=== PATIENT | female | born 1945 ===

== ENCOUNTER 2016-10-25 17:51 | Emergency (ER) | payer MEDICARE, OTHER ==
[2016-10-25 17:52] VITALS: BMI 12.8
[2016-10-25 18:07] VITALS: TEMP 97.9
[2016-10-25] MEDS ORDERED: Morphine 4 mg/ml ISec IVP STA ×2 (19:27→21:37)
[2016-10-25] MEDS ORDERED: DiphenhydrAMINE 50 mg/ml Inj IVP ONE (19:27)
[2016-10-25] MEDS ORDERED: Sodium Chloride 0.9% 1,000 ML IV STA (19:27)
--- NOTE | 2016-10-25 19:42 | ED PDOC ---
Arrival/HPI - General Chief Complaint: Abdominal Pain Time Seen by Provider: 10/25/16 19:19 Historian: Patient - History of Present Illness Narrative History of Present Illness (Text): 10/25/16 19:19 A 71 year old female, whose past medical history includes short bowel syndrome, Colon cancer, intestinal obstruction and cholecystectomy, who presents to the emergency department complaining of diffuse abdominal discomfort for the past couple of days. Patient notes associated nausea and non bloody watery diarrhea. She denies any fever, chills, vomiting, chest pain, shortness of breath or other complaints at this time. Time/Duration: 24 hours Symptom Onset: Sudden Symptom Course: Unchanged Quality: Other Activities at Onset: Rest Modifying Factors (Text): none Context: Home Associated Symptoms (Text): nausea and diarrhea Past Medical History - Provider Review Nursing Documentation Reviewed: Yes - Cardiac Hx Hypertension: Yes - Pulmonary Hx Respiratory Disorders: No - Neurological Hx Neurological Disorder: No - HEENT Hx HEENT Disorder: No - Renal Hx Renal Disorder: No - Endocrine/Metabolic Other/Comment: THYROIDECTOMY - Hematological/Oncological Hx Cancer: Yes - Musculoskeletal/Rheumatological Hx Arthritis: Yes - Genitourinary/Gynecological Hx Genitourinary Disorders: No - Psychiatric Hx Anxiety: Yes Hx Depression: Yes Hx Substance Use: No - Surgical History Hx Cholecystectomy: Yes Hx Hysterectomy: Yes Hx Orthopedic Surgery: Yes Other/Comment: R KNEE REPLACED, PORT R UPPER CHEST - Anesthesia Hx Anesthesia: Yes Family/Social History - Physician Review Nursing Documentation Reviewed: Yes Family/Social History: Unknown Family HX Smoking Status: Never Smoked Hx Alcohol Use: No Hx Substance Use: No Allergies/Home Meds Allergies/Adverse Reactions: Allergies acetaminophen [From Percocet] Adverse Reaction (Mild, Verified 10/25/16 17:53) ITCHING Pt states when needed she takes medication with benadryl morphine Adverse Reaction (Mild, Verified 10/25/16 17:53) ITCHING Pt states when needed she takes medication with benadryl oxycodone HCl [From Percocet] Adverse Reaction (Mild, Verified 10/25/16 17:53) ITCHING Pt states when needed she takes medication with benadryl Home Medications: Home Meds Medication Instructions Recorded Confirmed Cyanocobalamin (Vitamin B-12) 1,000 mcg IJ Q30D 08/17/16 10/25/16 [B-12 Compliance] Hydrocodone/Acetaminophen 1 tab PO Q4 PRN 08/17/16 10/25/16 [Hydrocodone-Acetaminophen 325 mg-7 mg] Temazepam [Restoril] 30 mg PO DAILY 08/17/16 08/17/16 amLODIPine [Norvasc] 10 mg PO DAILY 08/17/16 08/17/16 traZODone [trazodone Hydrochloride] 100 mg PO DAILY 08/17/16 08/17/16 Levothyroxine Sodium [Levoxyl] 150 mcg PO DAILY 10/25/16 10/25/16 Review of Systems - Physician Review All systems were reviewed & negative as marked: Yes - Review of Systems Constitutional: absent: Fevers, Other (chills) Respiratory: absent: SOB Cardiovascular: absent: Chest Pain Gastrointestinal: Abdominal Pain, Diarrhea, Nausea. absent: Vomiting Physical Exam Vital Signs Reviewed: Yes Vital Signs Temp Pulse Resp BP Pulse Ox 10/25/16 17:57 97.9 F 85 17 127/74 99 Temperature: Afebrile Blood Pressure: Normal Pulse: Regular Respiratory Rate: Normal Appearance: Positive for: Well-Appearing, Non-Toxic, Comfortable Pain Distress: None Mental Status: Positive for: Alert and Oriented X 3 - Systems Exam Head: Present: Atraumatic, Normocephalic Pupils: Present: PERRL Extroacular Muscles: Present: EOMI Conjunctiva: Present: Normal Mouth: Present: Moist Mucous Membranes Neck: Present: Normal Range of Motion Respiratory/Chest: Present: Clear to Auscultation, Good Air Exchange. No: Respiratory Distress, Accessory Muscle Use Cardiovascular: Present: Regular Rate and Rhythm, Normal S1, S2. No: Murmurs Abdomen: Present: Tenderness (mild diffuse tenderness with palpation), Normal Bowel Sounds. No: Distention, Peritoneal Signs, Rebound, Guarding Back: Present: Normal Inspection Upper Extremity: Present: Normal Inspection. No: Cyanosis, Edema Lower Extremity: Present: Normal Inspection. No: Edema Neurological: Present: GCS=15, CN II-XII Intact, Speech Normal Skin: Present: Warm, Dry, Normal Color. No: Rashes Psychiatric: Present: Alert, Oriented x 3, Normal Insight, Normal Concentration Medical Decision Making ED Course and Treatment: 10/25/16 19:19 Impression: A 71 year old female with abdominal pain associated with nausea and diarrhea. Differential Diagnosis include but are not limited to: IBS vs. obstruction vs. gastritis Plan: -- Abdomen/Pelvis CT -- Chest X-ray -- EKG -- Labs -- Urinalysis -- Benadryl, Morphine, Pepcid, Zofran and IV Fluids -- Reassess and disposition Prior Visits: Notes and results from previous visits were reviewed. The patient last presented the emergency department on 08/17/16 for evaluation of diffuse abdominal pain. Progress Notes: Reviewed EKG, NSR at 74 bpm. Prolonged QT. Non-specific ST/T wave changes. 10/25/16 21:04 Reviewed Chest X-ray, shows no active disease. 10/25/16 21:33 CT Abdomen and Pelvis shows: 1. Limited study without intravenous or enteric contrast. 2. Evidence of multiple surgeries in the abdomen including bowel resections and partial gastrectomy. Proximal colon and multiple small bowel loops are moderately distended with fluid, most conspicuous along anastomotic suture lines and likely within expected postoperative limits. Although ileus is not excluded, a high-grade mechanical obstruction is felt to be unlikely. 10/25/16 22:07 Discussed results and hospital observation plan with pt. Pt states she does not wish to stay. Pt is choosing to leave against medical advice. Explained to the pt that choosing to do so may result in permanent bodily harm or . Discussed at great length that without further evaluation and monitoring there may be unforeseen circumstances and/or deterioration causing permanent bodily harm or as a result of their choice. Pt is alert, oriented, and shows the mental capacity to make clear decisions regarding the pts health care at this time. Pt continues to wish to leave against medical advice. Pt has been advised that they should return to the emergency room immediately if they change their mind at any time, or if their condition begins to change or worsen in any way. - Lab Interpretations Lab Results: 10/25/16 19:58 10/25/16 19:58 Lab Results 10/25/16 19:58: pO2 89 H, VBG pH 7.46 H, VBG pCO2 58.0, VBG HCO3 41.3 H, VBG Total CO2 43.1 H, VBG O2 Sat (Calc) 98.2 H, VBG Base Excess 14.7 H, VBG Potassium 2.9 L, Sodium 140.0, Chloride 106.0, Glucose 93, Lactate 1.1, FiO2 21.0, Venous Blood Potassium 2.9 L 10/25/16 19:58: WBC 9.5, RBC 3.09 L, Hgb 10.0 L, Hct 29.9 L, MCV 96.8, MCH 32.4 , MCHC 33.4, RDW 12.7, Plt Count 227, MPV 8.8 10/25/16 19:58: Sodium 138, Chloride 94 L, Potassium 2.8 L*, Carbon Dioxide 34 H , Anion Gap 13, BUN 25 H, Creatinine 0.6, Est GFR ( Amer) > 60, Est GFR ( Non-Af Amer) > 60, Random Glucose 91, Calcium 8.9, Total Bilirubin 0.8, AST 34, ALT 43, Alkaline Phosphatase 74, Total Protein 6.7, Albumin 3.7, Globulin 3.0, Albumin/Globulin Ratio 1.2, Lipase 67 10/25/16 19:58: PT 14.2 H, INR 1.31 H, APTT 28.1 I have reviewed the lab results: Yes - RAD Interpretation Narrative RAD Interpretations (Text): CT Abdomen and Pelvis shows: Artifacts: The examination is limited by metallic streak artifact. Limitations: Limited study without intravenous or enteric contrast. Lower thorax: No acute findings. ABDOMEN: Liver: The liver is unremarkable. Gallbladder and bile ducts: There has been a cholecystectomy. No biliary ductal dilatation. Pancreas: The pancreas is unremarkable. Spleen: The spleen is unremarkable. Adrenals: The adrenal glands are unremarkable. Kidneys and ureters: There is a simple cyst in the left kidney. No hydronephrosis or nephrolithiasis Stomach and bowel: Evidence of multiple surgeries in the abdomen including bowel resections and partial gastrectomy. Proximal colon and multiple small bowel loops are moderately distended with fluid, most conspicuous along anastomotic suture lines and likely within expected postoperative limits. Although ileus is not excluded, a high-grade mechanical obstruction is felt to be unlikely. Appendix: The appendix is not seen. PELVIS: Bladder: No focal wall thickening of the urinary bladder. No stones. Reproductive: Unremarkable as visualized. ABDOMEN and PELVIS: Intraperitoneal space: Unremarkable. No free air. No significant fluid collection. Bones/joints: L1-L5 posterior fusion hardware. Soft tissues: No soft tissue swelling. Vasculature: Significantly limited assessment of the vasculature without contrast. Atherosclerotic calcification affects the aorta and iliac arteries. No aortic aneurysm. Lymph nodes: No enlarged lymph nodes. IMPRESSION: 1. Limited study without intravenous or enteric contrast. 2. Evidence of multiple surgeries in the abdomen including bowel resections and partial gastrectomy. Proximal colon and multiple small bowel loops are moderately distended with fluid, most conspicuous along anastomotic suture lines and likely within expected postoperative limits. Although ileus is not excluded, a high-grade mechanical obstruction is felt to be unlikely. Radiology Orders: 10/25/16 19:26 CHEST PORTABLE [RAD] Stat 10/25/16 19:29 ABD & PELVIS W/O PO OR IV CONT [CT] Stat Critical Care Rn: Radiologist - Medication Orders Current Medication Orders: Potassium Chloride (Potassium Chloride 20 Meq/100 Ml) 20 meq in 100 mls @ 50 mls/hr IV ONCE ONE Stop: 10/25/16 23:17 Discontinued Medications Diphenhydramine HCl (Benadryl) 25 mg IVP ONCE ONE Stop: 10/25/16 19:28 Last Admin: 10/25/16 20:09 Dose: 25 mg Famotidine (Pepcid) 20 mg IVP STAT STA Stop: 10/25/16 19:28 Last Admin: 10/25/16 20:08 Dose: 20 mg Sodium Chloride (Sodium Chloride 0.9%) 1,000 mls @ 999 mls/hr IV .Q1H1M STA Stop: 10/25/16 20:27 Last Admin: 10/25/16 20:09 Dose: 999 mls/hr Morphine Sulfate (Morphine) 4 mg IVP STAT STA Stop: 10/25/16 19:28 Last Admin: 10/25/16 20:09 Dose: 4 mg Morphine Sulfate (Morphine) 4 mg IVP STAT STA Stop: 10/25/16 21:38 Ondansetron HCl (Zofran Inj) 4 mg IVP ONCE ONE Stop: 10/25/16 19:28 Last Admin: 10/25/16 20:09 Dose: 4 mg Ondansetron HCl (Zofran Inj) 4 mg IVP ONCE ONE Stop: 10/25/16 21:36 Potassium Chloride (K-Dur 20 Meq Er Tab) 20 meq PO STAT STA Stop: 10/25/16 21:51 - Scribe Statement The provider has reviewed the documentation as recorded by the Airamibaaron Srinivasan Provider Scribe Attestation: All medical record entries made by the Airamibe were at my direction and personally dictated by me. I have reviewed the chart and agree that the record accurately reflects my personal performance of the history, physical exam, medical decision making, and the department course for this patient. I have also personally directed, reviewed, and agree with the discharge instructions and disposition. Disposition/Present on Arrival - Present on Arrival Any Indicators Present on Arrival: No History of DVT/PE: No History of Uncontrolled Diabetes: No Urinary Catheter: No History of Decub. Ulcer: No History Surgical Site Infection Following: None - Disposition Have Diagnosis and Disposition been Completed?: Yes Diagnosis: Abdominal pain, Ileus, Hypokalemia Disposition: AGAINST MEDICAL ADVICE Disposition Time: 22:25 Patient Problems: Current Active Problems Problem Status Onset Abdominal pain Acute Hypokalemia Acute Ileus Acute Condition: STABLE
[2016-10-25 20:07] LABS: HEMATOCRIT 29.9 % (36.0-48.0); MEAN CELL VOLUME 96.8 fL (80.0-105.0); MEAN CORPUSCULAR HEMOGLOBIN 32.4 pg (25.0-35.0); MEAN CORPUSCULAR HGB CONC 33.4 g/dl (31.0-37.0); MEAN PLATELET VOLUME 8.8 fl (7.0-11.0); RED CELL DISTRIBUTION WIDTH 12.7 % (11.5-14.5); WHITE BLOOD COUNT 9.5 10^3/ul (4.5-11.0)
[2016-10-25 20:15] LABS: INR 1.31 (0.93-1.08); PARTIAL THROMBOPLASTIN TIME 28.1 Seconds (23.7-30.8)
[2016-10-25 20:18] LABS: VENOUS BLOOD GAS BASE EXCESS 14.7 mmol/L (0.0-2.0); VENOUS BLOOD PH 7.46 (7.32-7.43)
[2016-10-25 20:30] LABS: ALB/GLOB RATIO 1.2 (1.1-1.8); ALKALINE PHOSPHATASE 74 U/L (38-133); ALT/SGPT 43 U/L (7-56); AST/SGOT 34 U/L (15-39); BILIRUBIN,TOTAL 0.8 mg/dL (0.2-1.3); BLOOD UREA NITROGEN 25 mg/dL (7-21); CALCIUM 8.9 mg/dL (8.4-10.5); CARBON DIOXIDE 34 mmol/L (21-33); CHLORIDE 94 mmol/L (98-107); GFR AFRICAN-AMERICAN > 60; GLUCOSE,RANDOM 91 mg/dL (70-110); LIPASE 67 U/L (23-300); SODIUM 138 mmol/L (132-148); TOTAL PROTEIN 6.7 g/dL (5.8-8.3)
[2016-10-25 20:34] LABS: POTASSIUM 2.8 mmol/L (3.6-5.0)
[2016-10-25] MEDS ORDERED: Morphine 2 mg/ml ISec IVP STA (21:33)
[2016-10-25] MEDS ORDERED: Potassium Chloride 20 mEq ER Tab PO STA (21:50)
[2016-10-25 23:19] VITALS: RESP 18
[2016-10-26 00:44] VITALS: BP 136/75; PULSE 69; O2SAT 99
--- NOTE | 2016-10-26 08:12 | RAD ---
HISTORY: fever COMPARISON: No prior. FINDINGS: LUNGS: No active pulmonary disease. PLEURA: No significant pleural effusion identified, no pneumothorax apparent. CARDIOVASCULAR: Normal. OSSEOUS STRUCTURES: No significant abnormalities. VISUALIZED UPPER ABDOMEN: Normal. OTHER FINDINGS: Right-sided Port-A-Cath in SVC IMPRESSION: No active disease.
--- NOTE | 2016-10-26 12:18 | CARD ---
APPROVED REPORT EKG Measurement Heart [id number] <Conclusion> Normal sinus rhythm Prolonged QT Abnormal ECG
--- NOTE | 2016-10-26 16:08 | CT ---
PROCEDURE: CT Abdomen and Pelvis without intravenous contrast HISTORY: abdominal pain COMPARISON: None. TECHNIQUE: Without contrast. Contrast Dose: Radiation dose: Total exam DLP = 183 mGy-cm. This CT exam was performed using one or more of the following dose reduction techniques: Automated exposure control, adjustment of the mA and/or kV according to patient size, and/or use of iterative reconstruction technique. The study is limited by lack of abdominal fat and lack of oral or IV contrast. Separation of bowel loops is difficult. It is difficult to detect inflammatory changes FINDINGS: LOWER THORAX: Unremarkable. LIVER: Unremarkable. No gross lesion or ductal dilatation. GALLBLADDER AND BILE DUCTS: Unremarkable. PANCREAS: Unremarkable. No gross lesion or ductal dilatation. SPLEEN: Unremarkable. ADRENALS: Unremarkable. No mass. KIDNEYS AND URETERS: Unremarkable. No hydronephrosis. No solid mass. VASCULATURE: Unremarkable. No aortic aneurysm. BOWEL: Multiple dilated loops of large bowel are seen with air-fluid levels. Findings could be related to partial obstruction or ileus. Multiple suture lines are seen. There is no evidence of free air. APPENDIX: Not visualized PERITONEUM: Unremarkable. No free fluid. No free air. LYMPH NODES: Unremarkable. No enlarged lymph nodes. BLADDER: Unremarkable. REPRODUCTIVE: Unremarkable. BONES: Multiple pedicle screws are seen OTHER FINDINGS: The report concurs with the preliminary [facility] report IMPRESSION: Multiple dilated loops of large bowel with air-fluid levels. See comments
== END 2016-10-26 00:44 | disposition left against medical advice (07) ==
LOC: ED 17:51
DX: K56.7 Ileus, unspecified (principal); E87.6 Hypokalemia; R10.9 Unspecified abdominal pain
CPT/HCPCS: 71010; 74176; 80053; 82803; 83690; 85027; 85610; 85730; 93005; 96374; 96375; 96376; 99283; J1200; J2270; J2405; J3480; J7040

== ENCOUNTER 2016-10-27 17:30 | Emergency (ER) | payer MEDICARE, OTHER ==
[2016-10-27 17:48] VITALS: BMI 13.3
[2016-10-27 17:49] VITALS: RESP 16; TEMP 97.5
[2016-10-27] MEDS ORDERED: Morphine 2 mg/ml ISec IVP STA ×2 (18:18→20:55)
[2016-10-27] MEDS ORDERED: DiphenhydrAMINE 50 mg/ml Inj IVP STA ×2 (18:18→20:55)
[2016-10-27] MEDS ORDERED: Sodium Chloride 0.9% 1,000 ML IV STA (18:18)
--- NOTE | 2016-10-27 18:25 | ED PDOC ---
Arrival/HPI - General Chief Complaint: Dizziness/Lightheaded Time Seen by Provider: 10/27/16 17:53 Historian: Patient - History of Present Illness Narrative History of Present Illness (Text): 10/27/16 18:17 Patient is a 71 year old female whose past medical history includes short bowel syndrome, Colon cancer, intestinal obstruction and cholecystectomy, who presents to the emergency department with worsening abdominal pain since last visit in the ER 2 days ago. Patient had non-contrast CT which showed possible ileus and she signed out AMA. Patient also reports nausea and constipation since leaving two days ago. Denies vomiting dysuria, or other complaints. PMD: None Time/Duration: < week Symptom Onset: Gradual Symptom Course: Worsening Modifying Factors (Text): None Associated Symptoms (Text): None Past Medical History - Provider Review Nursing Documentation Reviewed: Yes - Cardiac Hx Cardiac Disorders: Yes Hx Hypertension: Yes - Pulmonary Hx Respiratory Disorders: No - Neurological Hx Neurological Disorder: No - HEENT Hx HEENT Disorder: No - Renal Hx Renal Disorder: No - Endocrine/Metabolic Hx Endocrine Disorders: Yes Other/Comment: THYROIDECTOMY - Hematological/Oncological Hx Blood Disorders: Yes Hx Cancer: Yes (colon) - Integumentary Hx Dermatological Disorder: No - Musculoskeletal/Rheumatological Hx Musculoskeletal Disorders: Yes Hx Arthritis: Yes - Gastrointestinal Hx Gastrointestinal Disorders: Yes - Genitourinary/Gynecological Hx Genitourinary Disorders: No - Psychiatric Hx Psychophysiologic Disorder: Yes Hx Anxiety: Yes Hx Depression: Yes Hx Substance Use: No - Surgical History Hx Cholecystectomy: Yes Hx Hysterectomy: Yes Hx Orthopedic Surgery: Yes Other/Comment: R KNEE REPLACED, PORT R UPPER CHEST - Anesthesia Hx Anesthesia: Yes Family/Social History - Physician Review Nursing Documentation Reviewed: Yes Family/Social History: Unknown Family HX Smoking Status: Never Smoked Hx Alcohol Use: No Hx Substance Use: No Allergies/Home Meds Allergies/Adverse Reactions: Allergies acetaminophen [From Percocet] Adverse Reaction (Mild, Verified 10/27/16 17:48) ITCHING Pt states when needed she takes medication with benadryl morphine Adverse Reaction (Mild, Verified 10/27/16 17:48) ITCHING Pt states when needed she takes medication with benadryl oxycodone HCl [From Percocet] Adverse Reaction (Mild, Verified 10/27/16 17:48) ITCHING Pt states when needed she takes medication with benadryl Home Medications: Home Meds Medication Instructions Recorded Confirmed Cyanocobalamin (Vitamin B-12) 1,000 mcg IJ Q30D 08/17/16 10/27/16 [B-12 Compliance] Temazepam [Restoril] 30 mg PO HS 08/17/16 10/27/16 amLODIPine [Norvasc] 10 mg PO DAILY 08/17/16 10/27/16 traZODone [trazodone Hydrochloride] 100 mg PO DAILY 08/17/16 10/27/16 Levothyroxine Sodium [Levoxyl] 150 mcg PO DAILY 10/25/16 10/27/16 Review of Systems - Review of Systems Eyes: absent: Vision Changes ENT: absent: Hearing Changes Respiratory: absent: SOB Cardiovascular: absent: Chest Pain, Palpitations Gastrointestinal: Abdominal Pain, Constipation, Nausea. absent: Diarrhea, Vomiting Genitourinary Female: absent: Dysuria, Frequency, Hematuria Musculoskeletal: absent: Arthralgias Skin: absent: Rash Neurological: absent: Headache Endocrine: absent: Diaphoresis Psychiatric: absent: Depression Physical Exam Vital Signs Reviewed: Yes Vital Signs Temp Pulse Resp BP Pulse Ox 10/27/16 20:30 73 155/83 H 98 10/27/16 17:49 97.5 F L 77 16 148/89 97 Temperature: Afebrile Blood Pressure: Normal Pulse: Regular Respiratory Rate: Normal Appearance: Positive for: Non-Toxic, Comfortable, Ill-Appearing, Cachectic Pain Distress: None Mental Status: Positive for: Alert and Oriented X 3 - Systems Exam Head: Present: Atraumatic, Normocephalic Pupils: Present: PERRL Extroacular Muscles: Present: EOMI Conjunctiva: Present: Normal Mouth: Present: Moist Mucous Membranes Neck: Present: Normal Range of Motion Respiratory/Chest: Present: Clear to Auscultation, Good Air Exchange. No: Respiratory Distress, Accessory Muscle Use Cardiovascular: Present: Regular Rate and Rhythm, Normal S1, S2. No: Murmurs Abdomen: Present: Tenderness (mild generalized tenderness), Normal Bowel Sounds. No: Distention, Peritoneal Signs Back: Present: Normal Inspection Upper Extremity: Present: Normal Inspection. No: Cyanosis, Edema Lower Extremity: Present: Normal Inspection. No: Edema Neurological: Present: GCS=15, CN II-XII Intact, Speech Normal Skin: Present: Warm, Dry, Normal Color. No: Rashes Psychiatric: Present: Alert, Oriented x 3, Normal Insight, Normal Concentration Medical Decision Making ED Course and Treatment: Impression: Patient is a 71 year old female whose past medical history includes short bowel syndrome, Colon cancer, intestinal obstruction and cholecystectomy, who presents to the emergency department with worsening abdominal pain since last visit in the ER 2 days ago. Differential Diagnosis included but are not limited to: SBO Plan: -- CT w/ PO & IV contrast -- Benadryl, Pepcid, Zofran -- Morphine -- IV fluids -- Labs -- Reassess and disposition Prior Visits: Notes and results from previous visits were reviewed. Patient last seen in the ED on 10/25/16 for abdominal pain and signed out AMA for admission Progress Notes: 10/27/16 19:49 EKG shows NSR at 70bpm with QTc:[address]ations. 10/27/16 21:21 Labs grossly normal except for (known) anemia, and hematuria EXAM: CT Abdomen and Pelvis With Intravenous Contrast FINDINGS: Scarring/atelectasis at the lung bases. Periportal fluid. The liver, spleen, pancreas and adrenal glands demonstrate no acute abnormalities. Status post cholecystectomy. The kidneys are symmetric with no evidence of hydronephrosis. Approximately 3 cm left renal cyst. Additional bilateral subcentimeter hypoattenuating lesions which are incompletely characterized on this study. Atherosclerosis. Evidence of multiple surgeries in the abdomen including bowel resections and partial gastrectomy. Difficult to follow bowel. Proximal colon and multiple small bowel loops are moderately distended with fluid, most conspicuous along anastomotic suture lines and may be within expected postoperative limits. Appearance is similar to available prior study. Findings may be secondary to ileus or partial obstruction. Cannot exclude underlying lesion. Delayed imaging of the bowel to follow contrast progression may aid in evaluation. L1-L5 posterior fusion hardware. IMPRESSION: Evidence of multiple surgeries in the abdomen including bowel resections and partial gastrectomy. Difficult to follow bowel. Proximal colon and multiple small bowel loops are moderately distended with fluid, most conspicuous along anastomotic suture lines and may be within expected postoperative limits. Appearance is similar to available prior study. Findings may be secondary to ileus or partial obstruction. Cannot exclude underlying lesion. Delayed imaging of the bowel to follow contrast progression may aid in evaluation. Periportal fluid. Please see additional details/findings as above. Correlate clinically. Followup as warranted. Dictated and Authenticated by: Suzi Shell MD 10/27/2016 9:28 PM Eastern Time ([place] & [place]) I went to explain to patient the results of the ct and that she needs admission and surgical evaluation. She reports that she wants to go home and will follow- up with her doctors at [facility]. She is requesting to sign out AMA. This is the second time that patient has signed out AMA and I tried to explain to her that her symptoms seem to be worsening but she reports that she feels better now and wants to go home. Leaving Against Medical Advice (AMA): The patient is choosing to leave against medical advice. I have personally explained to the patient that choosing to do so may result in permanent bodily harm or . I have discussed at great length that without further evaluation and monitoring there may be unforeseen circumstances and/or deterioration causing permanent bodily harm or as a result of their choice. The patient is alert, oriented, and shows the mental capacity to make clear decisions regarding the patients health care at this time. The patient continues to wish to leave against medical advice. The patient has been advised that they should return to the emergency room immediately if they change their mind at any time, or if their condition begins to change or worsen in any way. - Lab Interpretations Lab Results: 10/27/16 18:20 10/27/16 18:20 Lab Results 10/27/16 21:00: Urine Color Straw, Urine Appearance Clear, Urine pH 7.5, Ur Specific [place] 1.010, Urine Protein Negative, Urine Glucose (UA) Negative, Urine Ketones Negative, Urine Blood Moderate H, Urine Nitrate Negative, Urine Bilirubin Negative, Urine Urobilinogen 0.2, Ur Leukocyte Esterase Negative, Urine RBC 1 - 3, Urine WBC 0 - 2, Ur Epithelial Cells 0 - 2, Urine Bacteria Neg 10/27/16 18:20: Sodium 138, Chloride 100, Potassium 3.2 L, Carbon Dioxide 32, Anion Gap 9 L, BUN 21, Creatinine 0.6, Est GFR ( Amer) > 60, Est GFR (Non -Af Amer) > 60, Random Glucose 84, Calcium 8.8, Phosphorus 3.1, Magnesium 2.5 H , Total Bilirubin 0.5, AST 25, ALT 22, Alkaline Phosphatase 75, Total Protein 6.5, Albumin 3.6, Globulin 2.9, Albumin/Globulin Ratio 1.2, Lipase 64 10/27/16 18:20: pO2 123 H, VBG pH 7.44 H, VBG pCO2 54.0, VBG HCO3 36.7 H, VBG Total CO2 38.4 H, VBG O2 Sat (Calc) 98.7 H, VBG Base Excess 10.5 H, VBG Potassium 3.3 L, Sodium 140.0, Chloride 109.0 H, Glucose 92, Lactate 1.4, FiO2 21.0, Venous Blood Potassium 3.3 L 10/27/16 18:20: WBC 4.9 D, RBC 3.06 L, Hgb 9.8 L, Hct 29.5 L, MCV 96.4, MCH 32.0, MCHC 33.2, RDW 12.5, Plt Count 230, MPV 8.9, Gran % 61.1, Lymph % (Auto) 21.3 L, [place] % (Auto) 16.4 H, Eos % (Auto) 1.0 L, Baso % (Auto) 0.2, Gran # 3.01 , Lymph # 1.1 L, [place] # 0.8 H, Eos # 0.1, Baso # 0.01 - RAD Interpretation Radiology Orders: 10/27/16 18:17 ABD PELVIS PO & IV CONTRAST [CT] Stat - Medication Orders Current Medication Orders: Discontinued Medications Diphenhydramine HCl (Benadryl) 50 mg IVP STAT STA Stop: 10/27/16 18:19 Last Admin: 10/27/16 18:42 Dose: 50 mg Diphenhydramine HCl (Benadryl) 50 mg IVP STAT STA Stop: 10/27/16 20:56 Famotidine (Pepcid) 20 mg IVP STAT STA Stop: 10/27/16 18:19 Last Admin: 10/27/16 18:42 Dose: 20 mg Sodium Chloride (Sodium Chloride 0.9%) 1,000 mls @ 999 mls/hr IV .Q1H1M STA Stop: 10/27/16 19:18 Last Admin: 10/27/16 18:41 Dose: 999 mls/hr Iohexol (Omnipaque 350 100 Ml) Confirm Administered Dose 350 mg .ROUTE .STK-MED ONE Stop: 10/27/16 20:05 Morphine Sulfate (Morphine) 2 mg IVP STAT STA Stop: 10/27/16 18:19 Last Admin: 10/27/16 18:42 Dose: 2 mg Re-Assess: PHIL Pain Assessment Document 10/27/16 19:42 VERA (Rec: 10/27/16 20:19 [facility] [id number]) Pain Reassessment Is this a pain reassessment? Yes Sleep Is patient sleeping during reassessment? Yes Morphine Sulfate (Morphine) 2 mg IVP STAT STA Stop: 10/27/16 20:56 Ondansetron HCl (Zofran Inj) 4 mg IVP STAT STA Stop: 10/27/16 18:19 Last Admin: 10/27/16 18:42 Dose: 4 mg - Scribe Statement The provider has reviewed the documentation as recorded by the Dalila Levine Provider Scribe Attestation: All medical record entries made by the Scribe were at my direction and personally dictated by me. I have reviewed the chart and agree that the record accurately reflects my personal performance of the history, physical exam, medical decision making, and the department course for this patient. I have also personally directed, reviewed, and agree with the discharge instructions and disposition. Disposition/Present on Arrival - Present on Arrival Any Indicators Present on Arrival: No History of DVT/PE: No History of Uncontrolled Diabetes: No Urinary Catheter: No History of Decub. Ulcer: No History Surgical Site Infection Following: None - Disposition Have Diagnosis and Disposition been Completed?: Yes Diagnosis: Ileus, Partial bowel obstruction Disposition: AGAINST MEDICAL ADVICE Disposition Time: 21:45 Patient Problems: Current Active Problems Problem Status Onset Ileus Acute Partial bowel obstruction Acute Condition: UNKNOWN Referrals: PCP,NO [Primary Care Provider] - Follow up with primary
[2016-10-27 18:32] LABS: ADD MANUAL DIFF? NO
[2016-10-27 18:37] LABS: BASO # 0.01 [, K/mm3] (0.0-2.0); BASO % 0.2 % (0.0-3.0); EOS # 0.1 (0.0-0.7); GRAN # 3.01 (1.4-6.5); GRAN % 61.1 % (50.0-68.0); HEMATOCRIT 29.5 % (36.0-48.0); LYMPH # 1.1 (1.2-3.4); LYMPH % 21.3 % (22.0-35.0); MEAN CELL VOLUME 96.4 fL (80.0-105.0); MEAN CORPUSCULAR HGB CONC 33.2 g/dl (31.0-37.0); MEAN PLATELET VOLUME 8.9 fl (7.0-11.0); MONO # 0.8 (0.1-0.6); MONO % 16.4 % (1.0-6.0); PLATELET COUNT 230 [, 10^3/uL] (120.0-450.0); RED CELL DISTRIBUTION WIDTH 12.5 % (11.5-14.5); WHITE BLOOD COUNT 4.9 [, 10^3/ul] (4.5-11.0)
[2016-10-27 18:44] LABS: VENOUS BLOOD GAS BASE EXCESS 10.5 mmol/L (0.0-2.0); VENOUS BLOOD PH 7.44 (7.32-7.43)
[2016-10-27 18:48] LABS: ALB/GLOB RATIO 1.2 (1.1-1.8); ALKALINE PHOSPHATASE 75 U/L (38-133); ALT/SGPT 22 U/L (7-56); AST/SGOT 25 U/L (15-39); BILIRUBIN,TOTAL 0.5 mg/dL (0.2-1.3); BLOOD UREA NITROGEN 21 mg/dL (7-21); CALCIUM 8.8 mg/dL (8.4-10.5); CARBON DIOXIDE 32 mmol/L (21-33); CHLORIDE 100 mmol/L (98-107); GFR AFRICAN-AMERICAN > 60; GLUCOSE,RANDOM 84 mg/dL (70-110); LIPASE 64 U/L (23-300); MAGNESIUM 2.5 mg/dL (1.7-2.2); PHOSPHOROUS 3.1 mg/dL (2.5-4.5); POTASSIUM 3.2 mmol/L (3.6-5.0); SODIUM 138 mmol/L (132-148); TOTAL PROTEIN 6.5 g/dL (5.8-8.3)
[2016-10-27] MEDS ORDERED: Iohexol 350 MG/100 ML VIAL ONE (20:04)
[2016-10-27 20:31] VITALS: BP 155/83; PULSE 73; O2SAT 98
[2016-10-27 21:13] LABS: PH,URINE 7.5 (4.7-8.0); URINE BILIRUBIN NEGATIVE (NEGATIVE); URINE BLOOD MODERATE (NEGATIVE); URINE GLUCOSE (UA) NEGATIVE (NEGATIVE); URINE KETONE NEGATIVE (NEGATIVE); URINE LEUKOCYTE ESTERASE NEGATIVE Leu/uL (NEGATIVE); URINE PROTEIN NEGATIVE mg/dL (<30 mg/dL); URINE UROBILINOGEN 0.2 E.U./dL (<1 E.U./dL)
[2016-10-27 21:19] LABS: URINE APPEARANCE CLEAR (CLEAR); URINE COLOR STRAW (YELLOW)
--- NOTE | 2016-10-27 21:29 | CT ---
EXAM: CT Abdomen and Pelvis With Intravenous Contrast CLINICAL HISTORY: 71 years old, female; Signs and symptoms; Vomiting; Patient HX: Colon ca; Additional info: Abdominal pain, vomiting TECHNIQUE: Axial computed tomography images of the abdomen and pelvis with intravenous contrast. This CT exam was performed using one or more of the following dose reduction techniques: automated exposure control, adjustment of the mA and/or kV according to patient size, and/or use of iterative reconstruction technique. Coronal and sagittal reformatted images were created and reviewed. CONTRAST: 100 mL of omni administered intravenously. COMPARISON: CT - ABD PELVIS W/O PO OR IV CONT 10/25/2016 8:28:50 PM FINDINGS: Scarring/atelectasis at the lung bases. Periportal fluid. The liver, spleen, pancreas and adrenal glands demonstrate no acute abnormalities. Status post cholecystectomy. The kidneys are symmetric with no evidence of hydronephrosis. Approximately 3 cm left renal cyst. Additional bilateral subcentimeter hypoattenuating lesions which are incompletely characterized on this study. Atherosclerosis. Evidence of multiple surgeries in the abdomen including bowel resections and partial gastrectomy. Difficult to follow bowel. Proximal colon and multiple small bowel loops are moderately distended with fluid, most conspicuous along anastomotic suture lines and may be within expected postoperative limits. Appearance is similar to available prior study. Findings may be secondary to ileus or partial obstruction. Cannot exclude underlying lesion. Delayed imaging of the bowel to follow contrast progression may aid in evaluation. L1-L5 posterior fusion hardware. IMPRESSION: Evidence of multiple surgeries in the abdomen including bowel resections and partial gastrectomy. Difficult to follow bowel. Proximal colon and multiple small bowel loops are moderately distended with fluid, most conspicuous along anastomotic suture lines and may be within expected postoperative limits. Appearance is similar to available prior study. Findings may be secondary to ileus or partial obstruction. Cannot exclude underlying lesion. Delayed imaging of the bowel to follow contrast progression may aid in evaluation. Periportal fluid. Please see additional details/findings as above. Correlate clinically. Followup as warranted.
[2016-10-27 21:30] LABS: URINE BACTERIA NEG (NEG); URINE EPITHELIAL CELLS 0 - 2 /hpf (0-5); URINE WBC 0 - 2 /hpf (0-6)
--- NOTE | 2016-10-28 15:38 | CARD ---
APPROVED REPORT EKG Measurement Heart [id number] <Conclusion> Normal sinus rhythm Prolonged QT Abnormal ECG
== END 2016-10-27 21:45 | disposition left against medical advice (07) ==
LOC: ED 17:30
DX: K56.7 Ileus, unspecified (principal); K56.60 Unspecified intestinal obstruction; I10 Essential (primary) hypertension; Z85.038 Personal history of other malignant neoplasm of large intestine; Z90.49 Acquired absence of other specified parts of digestive tract
CPT/HCPCS: 74177; 80053; 81001; 82803; 83690; 83735; 84100; 85025; 93005; 96374; 96375; 99284; J1200; J2270; J2405; J7040; Q9967

== ENCOUNTER 2016-11-06 13:34 | Emergency (ER) | payer MEDICARE, OTHER ==
[2016-11-06 13:35] VITALS: BMI 13.3
[2016-11-06 14:23] VITALS: RESP 18
[2016-11-06] MEDS ORDERED: Sodium Chloride 0.9% 1,000 ML IV STA (14:23)
[2016-11-06] MEDS ORDERED: Morphine 4 mg/ml ISec IVP STA ×2 (14:23→16:36)
[2016-11-06] MEDS ORDERED: DiphenhydrAMINE 50 mg/ml Inj IVP ONE (14:24)
--- NOTE | 2016-11-06 14:39 | ED PDOC ---
Arrival/HPI - General Chief Complaint: Abdominal Pain Time Seen by Provider: 11/06/16 14:14 Historian: Patient - History of Present Illness Narrative History of Present Illness (Text): 11/06/16 14:40 A 71 year old female, whose past medical history includes colon cancer, presents to the emergency department complaining of abdominal pain. Patient reports nausea and diarrhea. Patient last seen in emergency department last week and a couple days before that, where she left against medical advice both times. Patient had 3 CAT scans of abd/pelvis in the last 10 weeks, which showed an ileus each time. Patient reports to emergency department today requesting Morphine, Zofran, Benadryl and Pepcid. Patient denies smoking or alcohol use. Patient denies any other complaints at this time. Symptom Onset: Sudden Symptom Course: Unchanged Activities at Onset: Rest Context: Home Associated Symptoms (Text): nausea, diarrhea 11/06/16 16:37 Chronic abdominal pain. Accompanied by nausea and diarrhea. No vomiting. Patient is requesting pain medication. Multiple recent visits to the emergency department for similar complaints. Cachectic and chronically ill-appearing. Past Medical History - Provider Review Nursing Documentation Reviewed: Yes - Infectious Disease Hx of Infectious Diseases: None - Cardiac Hx Cardiac Disorders: Yes Hx Hypertension: Yes - Pulmonary Hx Respiratory Disorders: No - Neurological Hx Neurological Disorder: No - HEENT Hx HEENT Disorder: No - Renal Hx Renal Disorder: No - Endocrine/Metabolic Hx Endocrine Disorders: Yes Other/Comment: THYROIDECTOMY - Hematological/Oncological Hx Blood Disorders: Yes Hx Cancer: Yes (colon) - Integumentary Hx Dermatological Disorder: No - Musculoskeletal/Rheumatological Hx Musculoskeletal Disorders: Yes Hx Arthritis: Yes - Gastrointestinal Hx Gastrointestinal Disorders: Yes - Genitourinary/Gynecological Hx Genitourinary Disorders: No - Psychiatric Hx Psychophysiologic Disorder: Yes Hx Anxiety: Yes Hx Depression: Yes Hx Substance Use: No - Surgical History Hx Cholecystectomy: Yes Hx Hysterectomy: Yes Hx Orthopedic Surgery: Yes Other/Comment: R KNEE REPLACED, PORT R UPPER CHEST - Anesthesia Hx Anesthesia: Yes Family/Social History - Physician Review Nursing Documentation Reviewed: Yes Family/Social History: No Known Family HX Smoking Status: Never Smoked Hx Alcohol Use: No Hx Substance Use: No Allergies/Home Meds Allergies/Adverse Reactions: Allergies acetaminophen [From Percocet] Adverse Reaction (Mild, Verified 11/06/16 14:43) ITCHING Pt states when needed she takes medication with benadryl morphine Adverse Reaction (Mild, Verified 11/06/16 14:43) ITCHING Pt states when needed she takes medication with benadryl oxycodone HCl [From Percocet] Adverse Reaction (Mild, Verified 11/06/16 14:43) ITCHING Pt states when needed she takes medication with benadryl Home Medications: Home Meds Medication Instructions Recorded Confirmed Cyanocobalamin (Vitamin B-12) 1,000 mcg IJ Q30D 08/17/16 10/27/16 [B-12 Compliance] Temazepam [Restoril] 30 mg PO HS 08/17/16 10/27/16 amLODIPine [Norvasc] 10 mg PO DAILY 08/17/16 10/27/16 traZODone [trazodone Hydrochloride] 100 mg PO DAILY 08/17/16 10/27/16 Levothyroxine Sodium [Levoxyl] 150 mcg PO DAILY 10/25/16 10/27/16 Review of Systems - Physician Review All systems were reviewed & negative as marked: Yes - Review of Systems Constitutional: Fatigue. absent: Fevers Respiratory: absent: SOB, Cough Cardiovascular: absent: Chest Pain, Palpitations, Syncope Gastrointestinal: Abdominal Pain, Diarrhea, Nausea. absent: Constipation, Vomiting Neurological: absent: Headache, Dizziness Physical Exam Vital Signs Reviewed: Yes Vital Signs Temp Pulse Resp BP Pulse Ox 11/06/16 17:11 98.2 F 72 18 132/72 100 11/06/16 14:19 97.4 F L 90 18 148/84 98 Temperature: Afebrile Blood Pressure: Normal Pulse: Regular Respiratory Rate: Normal Appearance: Positive for: Non-Toxic, Uncomfortable, Cachectic, Other (thin) Pain Distress: Moderate Mental Status: Positive for: Alert and Oriented X 3 - Systems Exam Head: Present: Atraumatic, Normocephalic Pupils: Present: PERRL Extroacular Muscles: Present: EOMI Conjunctiva: Present: Normal Mouth: Present: Moist Mucous Membranes Pharnyx: No: ERYTHEMA, EXUDATE, TONSILS ENLARGED Neck: Present: Normal Range of Motion Respiratory/Chest: Present: Clear to Auscultation, Decreased Breath Sounds, Other (diminished lung sounds). No: Respiratory Distress Cardiovascular: Present: Regular Rate and Rhythm, Normal S1, S2. No: Murmurs Abdomen: No: Tenderness, Rebound, Guarding Back: Present: Normal Inspection. No: CVA Tenderness Upper Extremity: Present: Normal Inspection. No: Cyanosis, Edema Lower Extremity: Present: Normal Inspection. No: Edema Neurological: Present: GCS=15, CN II-XII Intact, Speech Normal, Motor Func Grossly Intact Skin: Present: Warm, Dry, Normal Color. No: Rashes Psychiatric: Present: Alert, Oriented x 3, Normal Insight, Normal Concentration Medical Decision Making ED Course and Treatment: 11/06/16 14:36 Impression: A 71 year old female with abdominal pain. Differential Diagnosis included but are not limited to: Plan: -- EKG -- Radiology Abdomen -- labs -- Urinalysis -- Pepcid, Zofran, IV fluids, Morphine, Benadryl -- Reassess and disposition Prior Visits: Notes and results from previous visits were reviewed. Patient last reported to the emergency department on 10/27/16 for evaluation of worsening abdominal pain. Progress Notes: 11/06/16 16:36 Patient is requesting more morphine which has been ordered for her 11/06/16 17:17 Feeling better and wants to go home. She has an appointment already scheduled with her PMD Dr. Talavera tomorrow. She does have pain medication at home. Follow up in the ER as needed. - Lab Interpretations Lab Results: 11/06/16 14:45 11/06/16 14:45 Lab Results 11/06/16 14:45: Sodium 138, Potassium 3.9, Chloride 101, Carbon Dioxide 32, Anion Gap 9 L, BUN 18, Creatinine 0.6, Est GFR ( Amer) > 60, Est GFR (Non -Af Amer) > 60, Random Glucose 82, Calcium 8.7, Total Bilirubin 0.6, AST 29, ALT 35, Alkaline Phosphatase 79, Lactate Dehydrogenase 463, Total Creatine Kinase 56, Troponin I < 0.01, Total Protein 6.0, Albumin 3.2, Globulin 2.9, Albumin/Globulin Ratio 1.1, Amylase 67, Lipase 88 11/06/16 14:45: PT 13.3 H, INR 1.23 H, APTT 27.5 11/06/16 14:45: WBC 8.6 D, RBC 2.98 L, Hgb 9.5 L, Hct 29.0 L, MCV 97.3, MCH 31.9, MCHC 32.8, RDW 12.9, Plt Count 240, MPV 8.8, Gran % 77.0 H, Lymph % (Auto ) 13.5 L, [place] % (Auto) 8.7 H, Eos % (Auto) 0.6 L, Baso % (Auto) 0.2, Gran # 6.61 H, Lymph # 1.2, [place] # 0.8 H, Eos # 0.1, Baso # 0.02 I have reviewed the lab results: Yes - RAD Interpretation Radiology Orders: 11/06/16 14:23 ABD 2 VIEWS (FLAT/UP OR DECUB) [RAD] Stat - EKG Interpretation Interpreted by ED Physician: Yes Type: 12 lead EKG - Medication Orders Current Medication Orders: Sodium Chloride (Sodium Chloride 0.9%) 1,000 mls @ 100 mls/hr IV .Q10H STA Stop: 11/07/16 00:22 Last Admin: 11/06/16 15:11 Dose: 100 mls/hr Discontinued Medications Diphenhydramine HCl (Benadryl) 25 mg IVP ONCE ONE Stop: 11/06/16 14:25 Last Admin: 11/06/16 15:11 Dose: 25 mg Famotidine (Pepcid) 20 mg IVP STAT STA Stop: 11/06/16 14:24 Last Admin: 11/06/16 15:11 Dose: 20 mg Morphine Sulfate (Morphine) 4 mg IVP STAT STA Stop: 11/06/16 14:24 Last Admin: 11/06/16 15:10 Dose: 4 mg Morphine Sulfate (Morphine) 4 mg IVP STAT STA Stop: 11/06/16 16:37 Last Admin: 11/06/16 16:46 Dose: 4 mg Ondansetron HCl (Zofran Inj) 4 mg IVP STAT STA Stop: 11/06/16 14:24 Last Admin: 11/06/16 15:11 Dose: 4 mg - Scribe Statement The provider has reviewed the documentation as recorded by the Dalila Russell Provider Scribe Attestation: All medical record entries made by the Scribe were at my direction and personally dictated by me. I have reviewed the chart and agree that the record accurately reflects my personal performance of the history, physical exam, medical decision making, and the department course for this patient. I have also personally directed, reviewed, and agree with the discharge instructions and disposition. Disposition/Present on Arrival - Present on Arrival Any Indicators Present on Arrival: No History of DVT/PE: No History of Uncontrolled Diabetes: No Urinary Catheter: No History of Decub. Ulcer: No History Surgical Site Infection Following: None - Disposition Have Diagnosis and Disposition been Completed?: Yes Diagnosis: Chronic abdominal pain Disposition: HOME/ ROUTINE Disposition Time: 17:18 Patient Plan: Discharge Condition: FAIR Discharge Instructions (ExitCare): Acute Abdominal Pain (ED) Additional Instructions: Keep appointment with your PMD already scheduled for tomorrow. Follow up in the ER As needed. Referrals: Bubba Cerda, [Primary Care Provider] - Follow up with primary
[2016-11-06 15:15] LABS: ADD MANUAL DIFF? NO
[2016-11-06 15:21] LABS: BASO # 0.02 K/mm3 (0.0-2.0); BASO % 0.2 % (0.0-3.0); EOS # 0.1 (0.0-0.7); EOS % 0.6 % (1.5-5.0); GRAN # 6.61 (1.4-6.5); LYMPH # 1.2 (1.2-3.4); LYMPH % 13.5 % (22.0-35.0); MEAN CELL VOLUME 97.3 fL (80.0-105.0); MEAN CORPUSCULAR HEMOGLOBIN 31.9 pg (25.0-35.0); MEAN CORPUSCULAR HGB CONC 32.8 g/dl (31.0-37.0); MEAN PLATELET VOLUME 8.8 fl (7.0-11.0); MONO # 0.8 (0.1-0.6); MONO % 8.7 % (1.0-6.0); PLATELET COUNT 240 10^3/uL (120.0-450.0); RED CELL DISTRIBUTION WIDTH 12.9 % (11.5-14.5); WHITE BLOOD COUNT 8.6 10^3/ul (4.5-11.0)
[2016-11-06 15:33] LABS: ALB/GLOB RATIO 1.1 (1.1-1.8); ALKALINE PHOSPHATASE 79 U/L (38-133); ALT/SGPT 35 U/L (7-56); AMYLASE 67 U/L (35-125); AST/SGOT 29 U/L (15-39); BILIRUBIN,TOTAL 0.6 mg/dL (0.2-1.3); BLOOD UREA NITROGEN 18 mg/dL (7-21); CALCIUM 8.7 mg/dL (8.4-10.5); CARBON DIOXIDE 32 mmol/L (21-33); CHLORIDE 101 mmol/L (98-107); GFR AFRICAN-AMERICAN > 60; GLUCOSE,RANDOM 82 mg/dL (70-110); INR 1.23 (0.93-1.08); LIPASE 88 U/L (23-300); PARTIAL THROMBOPLASTIN TIME 27.5 Seconds (23.7-30.8); POTASSIUM 3.9 mmol/L (3.6-5.0); SODIUM 138 mmol/L (132-148)
[2016-11-06 15:46] LABS: TROPONIN I < 0.01 ng/mL
[2016-11-06 17:12] VITALS: BP 132/72; PULSE 72; TEMP 98.2; O2SAT 100
--- NOTE | 2016-11-07 02:04 | CARD ---
APPROVED REPORT EKG Measurement Heart [id number] ID [id number] <Conclusion> Normal sinus rhythm Normal ECG
--- NOTE | 2016-11-07 08:48 | RAD ---
HISTORY: ap COMPARISON: No prior. FINDINGS: BOWEL: No evidence of bowel obstruction. There is gas seen throughout colon. There is a mildly dilated loop of small bowel in the right upper abdomen on the upright film, 3.5 cm in diameter. This is not appreciated on this supine film. This solitary distended small bowel loop is unlikely to reflect acute mechanical bowel obstruction. BONES: Extensive lumbar spinal fixation hardware. OTHER FINDINGS: None. IMPRESSION: No evidence of bowel obstruction.
== END 2016-11-06 17:45 | disposition home or self-care (01) ==
LOC: ED 13:34
DX: R10.9 Unspecified abdominal pain (principal); G89.29 Other chronic pain
CPT/HCPCS: 74020; 80053; 82150; 82550; 83615; 83690; 84484; 85025; 85610; 85730; 93005; 96374; 96375; 96376; 99283; J1200; J2270; J2405; J7040

== ENCOUNTER 2016-11-13 13:05 | Observation (INO) | payer MEDICARE, OTHER ==
[2016-11-13 13:05] VITALS: BMI 13.3
[2016-11-13 13:14] VITALS: TEMP 98.4
[2016-11-13] MEDS ORDERED: Morphine 4 mg/ml ISec IVP STA ×2 (13:43→16:31)
[2016-11-13] MEDS ORDERED: Sodium Chloride 0.9% 1,000 ML IV STA (13:43)
[2016-11-13] MEDS ORDERED: DiphenhydrAMINE 50 mg/ml Inj IVP STA ×2 (13:44→16:31)
[2016-11-13] MEDS ORDERED: Iohexol 240 (50 ml) ONE (13:48)
--- NOTE | 2016-11-13 13:56 | ED PDOC ---
Arrival/HPI - General Chief Complaint: Abdominal Pain Time Seen by Provider: 11/13/16 13:34 Historian: Patient - History of Present Illness Narrative History of Present Illness (Text): 11/13/16 13:43 A 71 year old female, whose past medical history includes hypertension, thyroidectomy, anemia, colon cancer and short bowel syndrome, presents to the emergency department complaining of diffuse abdominal pain for the past few days. Patient notes nausea and multiple episodes of non-bloody watery diarrhea. Patient denies any fever, chills, vomiting, hematouria, hematochezia, chest pain, shortness of breath or any other complaints. Patient was seen a week ago for similar. Patient reports she was referred to surgeon Dr. Liam Mendoza, which she has not followed up with yet. PMD: Dr. Saunders, Patient states she has not seen PMD yet but has a scheduled appointment next month Oncologist from [place]: Dr. Alexis, Patient has not seen an oncologist since she moved to [place] Time/Duration: Other (few days) Symptom Course: Unchanged Quality: Other Context: Home Past Medical History - Provider Review Nursing Documentation Reviewed: Yes - Infectious Disease Hx of Infectious Diseases: None - Cardiac Hx Cardiac Disorders: Yes Hx Hypertension: Yes - Pulmonary Hx Respiratory Disorders: No - Neurological Hx Neurological Disorder: No - HEENT Hx HEENT Disorder: No - Renal Hx Renal Disorder: No - Endocrine/Metabolic Hx Endocrine Disorders: Yes Other/Comment: THYROIDECTOMY - Hematological/Oncological Hx Blood Disorders: Yes Hx Cancer: Yes (colon) - Integumentary Hx Dermatological Disorder: No - Musculoskeletal/Rheumatological Hx Musculoskeletal Disorders: Yes Hx Arthritis: Yes - Gastrointestinal Hx Gastrointestinal Disorders: Yes - Genitourinary/Gynecological Hx Genitourinary Disorders: No - Psychiatric Hx Psychophysiologic Disorder: Yes Hx Anxiety: Yes Hx Depression: Yes Hx Substance Use: No - Surgical History Hx Cholecystectomy: Yes Hx Hysterectomy: Yes Hx Orthopedic Surgery: Yes Other/Comment: R KNEE REPLACED, PORT R UPPER CHEST - Anesthesia Hx Anesthesia: Yes Family/Social History - Physician Review Nursing Documentation Reviewed: Yes Family/Social History: No Known Family HX Smoking Status: Never Smoked Hx Alcohol Use: No Hx Substance Use: No Allergies/Home Meds Allergies/Adverse Reactions: Allergies acetaminophen [From Percocet] Adverse Reaction (Mild, Verified 11/13/16 13:10) ITCHING Pt states when needed she takes medication with benadryl morphine Adverse Reaction (Mild, Verified 11/13/16 13:10) ITCHING Pt states when needed she takes medication with benadryl oxycodone HCl [From Percocet] Adverse Reaction (Mild, Verified 11/13/16 13:10) ITCHING Pt states when needed she takes medication with benadryl Home Medications: Home Meds Medication Instructions Recorded Confirmed Cyanocobalamin (Vitamin B-12) 1,000 mcg IJ Q30D 08/17/16 11/13/16 [B-12 Compliance] Temazepam [Restoril] 30 mg PO HS 08/17/16 11/13/16 amLODIPine [Norvasc] 10 mg PO DAILY 08/17/16 11/13/16 traZODone [trazodone Hydrochloride] 100 mg PO DAILY 08/17/16 11/13/16 Levothyroxine Sodium [Levoxyl] 150 mcg PO DAILY 10/25/16 11/13/16 Review of Systems - Physician Review All systems were reviewed & negative as marked: Yes - Review of Systems Constitutional: absent: Fevers, Night Sweats Respiratory: absent: SOB Cardiovascular: absent: Chest Pain Gastrointestinal: Abdominal Pain, Diarrhea, Nausea. absent: Vomiting, Hematochezia Genitourinary Female: absent: Hematuria Physical Exam Vital Signs Reviewed: Yes Vital Signs Temp Pulse Resp BP Pulse Ox 11/13/16 16:37 95 H 18 138/77 100 11/13/16 15:17 98 H 18 102/68 99 11/13/16 13:13 98.4 F 107 H 17 99/64 L 99 Temperature: Afebrile Blood Pressure: Hypotensive Pulse: Tachycardic Respiratory Rate: Normal Appearance: Positive for: Non-Toxic, Comfortable, Cachectic, Other (Pale appearing) Pain Distress: None Mental Status: Positive for: Alert and Oriented X 3 - Systems Exam Head: Present: Atraumatic, Normocephalic Pupils: Present: PERRL Extroacular Muscles: Present: EOMI Conjunctiva: Present: Normal Mouth: Present: Dry Respiratory/Chest: Present: Clear to Auscultation, Good Air Exchange. No: Respiratory Distress, Accessory Muscle Use Cardiovascular: Present: Regular Rate and Rhythm, Normal S1, S2. No: Murmurs Abdomen: Present: Tenderness (Diffuse abdominal tenderness to palpation), Normal Bowel Sounds, Guarding (mild). No: Distention, Peritoneal Signs, Rebound Upper Extremity: Present: Normal Inspection. No: Cyanosis, Edema Lower Extremity: Present: Normal Inspection. No: Edema, CALF TENDERNESS Neurological: Present: GCS=15, CN II-XII Intact, Speech Normal Skin: Present: Warm, Dry, Pale. No: Rashes Psychiatric: Present: Alert, Oriented x 3, Normal Insight, Normal Concentration Medical Decision Making ED Course and Treatment: 11/13/16 13:42 Impression: A 71 year old female with diffuse abdominal pain, nausea and diarrhea. On exam, dry oral membranes and diffuse abdominal tenderness. Differential Diagnosis included but are not limited to: Abdominal pain r/o obstruction r/o dehydration Plan: -- Abdomen and pelvis CT -- Labs -- Urinalysis -- Benadryl, Pepcid, Morphine, Zofran and IV fluids -- Reassess and disposition Prior Visits: Notes and results from previous visits were reviewed. Patient last seen in the ED on 11/06/16 for abdominal pain, nausea and diarrhea. - Critical Care Critical Care Minutes: 30 minutes - Lab Interpretations Lab Results: 11/13/16 14:00 11/13/16 14:00 Lab Results 11/13/16 14:00: Sodium 130 L, Potassium 2.5 L* D, Chloride 99, Carbon Dioxide 25 , Anion Gap 9 L, BUN 17, Creatinine 0.6, Est GFR ( Amer) > 60, Est GFR ( Non-Af Amer) > 60, Random Glucose 92, Calcium 8.4, Total Bilirubin 0.9, AST 24, ALT 36, Alkaline Phosphatase 78, Total Protein 5.8, Albumin 3.2, Globulin 2.6, Albumin/Globulin Ratio 1.2, Lipase 36 11/13/16 14:00: PT 14.1 H, INR 1.31 H, APTT 49.9 H 11/13/16 14:00: WBC 15.5 H D, RBC 3.00 L, Hgb 9.6 L, Hct 28.0 L, MCV 93.3, MCH 32.0, MCHC 34.3, RDW 12.9, Plt Count 241, MPV 9.1, Neutrophils % (Manual) 75 H, Band Neutrophils % 2, Lymphocytes % (Manual) 10 L, Monocytes % (Manual) 13 H, Smudge Cells Present, Platelet Evaluation Normal, Polychromasia Slight, Hypochromasia 1+, Poikilocytosis (manual Slight, Anisocytosis (manual) 1+, Tear Drop Cells Slight, Ovalocytes Slight I have reviewed the lab results: Yes - RAD Interpretation Radiology Orders: 11/13/16 13:43 ABD PELVIS PO & IV CONTRAST [CT] Stat - Medication Orders Current Medication Orders: Discontinued Medications Diphenhydramine HCl (Benadryl) 25 mg IVP STAT STA Stop: 11/13/16 13:45 Last Admin: 11/13/16 14:22 Dose: 25 mg Diphenhydramine HCl (Benadryl) 25 mg IVP STAT STA Stop: 11/13/16 16:32 Famotidine (Pepcid) 20 mg IVP STAT STA Stop: 11/13/16 13:44 Last Admin: 11/13/16 14:21 Dose: 20 mg Sodium Chloride (Sodium Chloride 0.9%) 1,000 mls @ 1,000 mls/hr IV .Q1H STA Stop: 11/13/16 14:42 Last Admin: 11/13/16 14:22 Dose: 1,000 mls/hr Potassium Chloride (Potassium Chloride 10 Meq/100 Ml) 10 meq in 100 mls @ 100 mls/hr IVPB ONCE ONE Stop: 11/13/16 15:48 Last Admin: 11/13/16 15:39 Dose: 100 mls/hr Iohexol (Omnipaque 240 (50 Ml)) Confirm Administered Dose 50 ml .ROUTE .STK-MED ONE Stop: 11/13/16 13:49 Iohexol (Omnipaque 350 100 Ml) Confirm Administered Dose 350 mg .ROUTE .STK-MED ONE Stop: 11/13/16 14:58 Morphine Sulfate (Morphine) 4 mg IVP STAT STA Stop: 11/13/16 13:44 Last Admin: 11/13/16 14:21 Dose: 4 mg Re-Assess: PHIL Pain Assessment Document 11/13/16 15:21 HI (Rec: 11/13/16 15:40 IA [id number]) Pain Reassessment Is this a pain reassessment? Yes Sleep Is patient sleeping during reassessment? No Presence of Pain Presence of Pain Yes Pain Scale Used Pain Scale Used Numeric Location Pain Location Body Site Abdomen Description Description Constant Intensity of Pain at present 7 Morphine Sulfate (Morphine) 4 mg IVP STAT STA Stop: 11/13/16 16:32 Ondansetron HCl (Zofran Inj) 4 mg IVP STAT STA Stop: 11/13/16 13:44 Last Admin: 11/13/16 14:22 Dose: 4 mg Potassium Chloride (Potassium Chloride Oral Soln) 40 meq PO ONCE ONE Stop: 11/13/16 15:00 Last Admin: 11/13/16 15:39 Dose: Not Given Non-Admin Reason: Patient Refused ED OBSERVATION Date of observation admission: 11/13/16 Time of observation admission: 13:44 - Observation admission statement Patient is being placed in observation because:: Continual treatment of abdominal pain - Goals of Observation Goals of observation are:: Monitor and treat patients symptoms - Progress Note Progress Note: 11/13/16 13:44 Patient with diffuse abdominal pain. CT abdomen and labs ordered. Will re- evaluate after medication administered. 11/13/16 14:50 Labs reviewed, low potassium level and white count of 15. Ordered potassium chloride PO and IV, venous blood gas shock panel and stat EKG. Will continue IV fluids. 11/13/16 15:16 Case handed off to Dr. Pruitt, hospitalist, to be admitted under his service. Report Date : 11/13/2016 16:21:28 PROCEDURE: CT Abdomen and Pelvis with contrast Dictator : Regan Huerta MD IMPRESSION: The bowel is difficult to evaluate due to the absence of intra- abdominal fat. There is evidence of multiple prior surgeries in the abdomen including bowel resections and partial gastrectomy. There is moderate dilatation of the proximal colon and multiple small bowel loops especially in the pelvis. The oral contrast material is seen in the proximal small bowel. Followup CT or plain films may be indicated to follow the progression of contrast through the bowel. There is no evidence of pneumatosis or free air. Report Date : 11/13/2016 16:22:57 Procedure: Chest xray Dictator : Regan Huerta MD IMPRESSION: No active disease. 11/13/16 16:47 Patient states she needs more pain medications. Morphine 4mg IV. Patient states she always gets very itchy with Morphine and always gets Benadryl 25mg IV with medication. CT negative for infectious etiology. WBC 15 most likely due to dehydration and recommend f/u CBC. No fever. LA normal. - Scribe Statement The provider has reviewed the documentation as recorded by the [employer] Kristina Acuña Provider Scribe Attestation: All medical record entries made by the Scribe were at my direction and personally dictated by me. I have reviewed the chart and agree that the record accurately reflects my personal performance of the history, physical exam, medical decision making, and the department course for this patient. I have also personally directed, reviewed, and agree with the discharge instructions and disposition. Disposition/Present on Arrival - Present on Arrival Any Indicators Present on Arrival: No History of DVT/PE: No History of Uncontrolled Diabetes: No Urinary Catheter: No History of Decub. Ulcer: No History Surgical Site Infection Following: None - Disposition Have Diagnosis and Disposition been Completed?: Yes Diagnosis: Dehydration, Abdominal pain, Short bowel syndrome Disposition: HOSPITALIZED Disposition Time: 15:16 Patient Plan: Observation Condition: FAIR
[2016-11-13 14:37] LABS: MEAN CELL VOLUME 93.3 fL (80.0-105.0); MEAN CORPUSCULAR HGB CONC 34.3 g/dl (31.0-37.0); MEAN PLATELET VOLUME 9.1 fl (7.0-11.0); PLATELET COUNT 241 10^3/uL (120.0-450.0); RED CELL DISTRIBUTION WIDTH 12.9 % (11.5-14.5); WHITE BLOOD COUNT 15.5 10^3/ul (4.5-11.0)
[2016-11-13 14:38] LABS: ADD MANUAL DIFF? YES
[2016-11-13 14:43] LABS: ALB/GLOB RATIO 1.2 (1.1-1.8); ALKALINE PHOSPHATASE 78 U/L (38-133); ALT/SGPT 36 U/L (7-56); AST/SGOT 24 U/L (15-39); BILIRUBIN,TOTAL 0.9 mg/dL (0.2-1.3); BLOOD UREA NITROGEN 17 mg/dL (7-21); CALCIUM 8.4 mg/dL (8.4-10.5); CARBON DIOXIDE 25 mmol/L (21-33); CHLORIDE 99 mmol/L (98-107); GFR AFRICAN-AMERICAN > 60; GLUCOSE,RANDOM 92 mg/dL (70-110); LIPASE 36 U/L (23-300); SODIUM 130 mmol/L (132-148); TOTAL PROTEIN 5.8 g/dL (5.8-8.3)
[2016-11-13 14:46] LABS: POTASSIUM 2.5 mmol/L (3.6-5.0)
[2016-11-13 14:47] LABS: INR 1.31 (0.93-1.08); PARTIAL THROMBOPLASTIN TIME 49.9 Seconds (23.7-30.8)
[2016-11-13] MEDS ORDERED: Potassium Chloride 20 mEq ER Tab PO ONE (14:48)
[2016-11-13 14:57] LABS: ANISOCYTOSIS 1+; BAND 2 % (0-2); HYPOCHROMIA 1+; NEUTROPHIL 75 % (50.0-70.0); PLATELET ESTIMATE NORMAL (NORMAL); POIKILOCYTOSIS SLIGHT; POLYCHROMASIA SLIGHT; SMUDGE CELLS PRESENT; TEAR DROP CELLS SLIGHT
[2016-11-13] MEDS ORDERED: Iohexol 350 MG/100 ML VIAL ONE (14:57)
[2016-11-13 14:58] LABS: OVALOCYTES SLIGHT
[2016-11-13] MEDS ORDERED: Potassium Chloride 40 mEq/30 ml LIQ UD PO ONE (14:59)
--- NOTE | 2016-11-13 16:23 | CT ---
PROCEDURE: CT Abdomen and Pelvis with contrast HISTORY: abd pain r/o obstruction COMPARISON: 10/27/2016 TECHNIQUE: Contrast dose: 100 cc of Omni 350 Radiation dose: Total exam DLP = 169 mGy-cm. This CT exam was performed using one or more of the following dose reduction techniques: Automated exposure control, adjustment of the mA and/or kV according to patient size, and/or use of iterative reconstruction technique. FINDINGS: LOWER THORAX: Unremarkable. LIVER: Unremarkable. No gross lesion or ductal dilatation. GALLBLADDER AND BILE DUCTS: Gallbladder removed PANCREAS: Unremarkable. No gross lesion or ductal dilatation. SPLEEN: Unremarkable. ADRENALS: Unremarkable. No mass. KIDNEYS AND URETERS: Unremarkable. No hydronephrosis. No solid mass. VASCULATURE: Unremarkable. No aortic aneurysm. BOWEL: The bowel is difficult to evaluate due to the absence of intra-abdominal fat. There is evidence of multiple prior surgeries in the abdomen including bowel resections and partial gastrectomy. There is moderate dilatation of the proximal colon and multiple small bowel loops especially in the pelvis. The oral contrast material is seen in the proximal small bowel. Followup CT or plain films may be indicated to follow the progression of contrast through the bowel. There is no evidence of pneumatosis or free air. APPENDIX: Normal appendix. PERITONEUM: Unremarkable. No free fluid. No free air. LYMPH NODES: Unremarkable. No enlarged lymph nodes. BLADDER: Unremarkable. REPRODUCTIVE: Unremarkable. BONES: No acute fracture. OTHER FINDINGS: None. IMPRESSION: The bowel is difficult to evaluate due to the absence of intra-abdominal fat. There is evidence of multiple prior surgeries in the abdomen including bowel resections and partial gastrectomy. There is moderate dilatation of the proximal colon and multiple small bowel loops especially in the pelvis. The oral contrast material is seen in the proximal small bowel. Followup CT or plain films may be indicated to follow the progression of contrast through the bowel. There is no evidence of pneumatosis or free air.
--- NOTE | 2016-11-13 16:24 | RAD ---
HISTORY: abd pain COMPARISON: No prior. FINDINGS: LUNGS: No active pulmonary disease. PLEURA: No significant pleural effusion identified, no pneumothorax apparent. CARDIOVASCULAR: Normal. OSSEOUS STRUCTURES: No significant abnormalities. VISUALIZED UPPER ABDOMEN: Normal. OTHER FINDINGS: None. IMPRESSION: No active disease.
[2016-11-13 16:31] LABS: VENOUS BLOOD GAS BASE EXCESS -2.6 mmol/L (0.0-2.0); VENOUS BLOOD PH 7.32 (7.32-7.43)
[2016-11-13 16:38] VITALS: O2SAT 100
--- NOTE | 2016-11-13 17:06 | CP.PCM.HP ---
<Adilene Sterling - Last Filed: 11/13/16 22:08> History of Present Illness - History of Present Illness History of Present Illness: 71 yo F w/ PMHx of colon CA, short bowel syndrome, HTN, anemia, multiple colon sx, presents with one day exacerbation of diffuse abdominal pain, with c/o of diarrhea, and nausea. Recent ED visit w/in a week, w/ similar abdominal pain complaint. Diarrhea is non-bloody, and is about 5-6 episodes of diarrhea per day. Also reports poor appetite. Denies vomiting, SOB, chest pain, fever, urinary changes. HPI: colon CA, short bowel syndrome, HTN, anemia sx: partial gastric resection, unknown bowel resections, reportedly at [facility] one sx w/ Dr. Mendoza medications: restoril 30 mg PO HS, norvasc 10 mg PO qd, trazadone 100 mg PO qd , levothyroxine 150 mcg qd allergies: mild rash to opiods and acetominophen, treatable with benedryl Present on Admission - Present on Admission Any Indicators Present on Admission: No Past Patient History - Infectious Disease Hx of Infectious Diseases: None - Past Social History Smoking Status: Never Smoked - CARDIAC Hx Cardiac Disorders: Yes Hx Hypertension: Yes - PULMONARY Hx Respiratory Disorders: No - NEUROLOGICAL Hx Neurological Disorder: No - HEENT Hx HEENT Problems: No - RENAL Hx Chronic Kidney Disease: No - ENDOCRINE/METABOLIC Hx Endocrine Disorders: Yes Other/Comment: THYROIDECTOMY - HEMATOLOGICAL/ONCOLOGICAL Hx Blood Disorders: Yes Hx Cancer: Yes (colon) - INTEGUMENTARY Hx Dermatological Problems: No - MUSCULOSKELETAL/RHEUMATOLOGICAL Hx Musculoskeletal Disorders: Yes Hx Arthritis: Yes - GASTROINTESTINAL Hx Gastrointestinal Disorders: Yes - GENITOURINARY/GYNECOLOGICAL Hx Genitourinary Disorders: No - PSYCHIATRIC Hx Psychophysiologic Disorder: Yes Hx Anxiety: Yes Hx Depression: Yes Hx Substance Use: No - SURGICAL HISTORY Hx Cholecystectomy: Yes Hx Hysterectomy: Yes Hx Orthopedic Surgery: Yes Other/Comment: R KNEE REPLACED, PORT R UPPER CHEST - ANESTHESIA Hx Anesthesia: Yes Meds Allergies/Adverse Reactions: Allergies Allergy/AdvReac Type Severity Reaction Status Date / Time acetaminophen [From Percocet] AdvReac Mild ITCHING Verified 11/13/16 13:10 morphine AdvReac Mild ITCHING Verified 11/13/16 13:10 oxycodone HCl [From Percocet] AdvReac Mild ITCHING Verified 11/13/16 13:10 Results - Vital Signs Recent Vital Signs: Last Vital Signs Temp 98.4 F 11/13/16 13:13 Pulse 95 H 11/13/16 16:37 Resp 18 11/13/16 16:37 BP 138/77 11/13/16 16:37 Pulse Ox 100 11/13/16 16:37 - Labs Result Diagrams: 11/13/16 14:00 11/13/16 14:00 Labs: Laboratory Results - last 24 hr 11/13/16 16:15 pO2 101 H VBG pH 7.32 VBG pCO2 46.0 VBG HCO3 23.7 VBG Total CO2 25.1 VBG O2 Sat (Calc) 98.1 H VBG Base Excess -2.6 L VBG Potassium 3.0 L Sodium 133.0 Chloride 106.0 Glucose 89 Lactate 1.1 FiO2 21.0 Venous Blood Potassium 3.0 L Assessment & Plan - Assessment and Plan (Free Text) Plan: 71 yo F w/ PMHx of colon CA, short bowel syndrome, HTN, anemia, multiple colon sx, presents with one day exacerbation of diffuse abdominal pain, with diarrhea w/o blood about 5-6 times per day. ABD CT shows dilated proximal colon and loops of small bowel near pelvis. WBC of 15.5. Under observation in remote telemetry. Abdominal pain: GI consult morphine 2mg IVP q6h prn benedrayl 25 IV q6h prn pending u/a, vbg Diarrhea: Stool C. diff toxin ordered NS @100cc/hr HTN: Norvasc 10 mg PO qd hyponatremia and hypokalemia: potassium repleted and continue to monitor. NS 100 started, and continue to monitor. Hyperthyroidism: Levothyroxine 150 mcg qd Home medications: restoril 30 mg PO HS, trazadone 100 mg PO qd ppx: protonix, scd <Dawson Pruitt - Last Filed: 11/14/16 06:38> Physical Exam - Constitutional Appears: Well, No Acute Distress, Cachectic - Head Exam Head Exam: NORMAL INSPECTION - Eye Exam Eye Exam: EOMI - ENT Exam ENT Exam: Normal Exam - Neck Exam Neck exam: Positive for: Full Rom - Respiratory Exam Respiratory Exam: Clear to Auscultation Bilateral. absent: Rales - Cardiovascular Exam Cardiovascular Exam: Tachycardia, +S1, +S2 - GI/Abdominal Exam GI & Abdominal Exam: Normal Bowel Sounds, Soft, Tenderness (mild, generalized). absent: Distended, Guarding, Organomegaly, Rebound - Extremities Exam Extremities exam: Positive for: normal inspection - Neurological Exam Neurological exam: Alert, Oriented x3 - Psychiatric Exam Psychiatric exam: Normal Affect, Normal Mood Results - Vital Signs Recent Vital Signs: Last Vital Signs Temp 98.4 F 11/13/16 13:13 Pulse 88 11/13/16 18:53 Resp 16 11/13/16 18:53 BP 133/78 11/13/16 18:53 Pulse Ox 100 11/13/16 18:53 - Labs Result Diagrams: 11/13/16 14:00 11/13/16 14:00 Labs: Laboratory Results - last 24 hr 11/13/16 11/13/16 16:15 17:15 pO2 101 H VBG pH 7.32 VBG pCO2 46.0 VBG HCO3 23.7 VBG Total CO2 25.1 VBG O2 Sat (Calc) 98.1 H VBG Base Excess -2.6 L VBG Potassium 3.0 L Sodium 133.0 Chloride 106.0 Glucose 89 Lactate 1.1 FiO2 21.0 Venous Blood Potassium 3.0 L Urine Color Yellow Urine Appearance Clear Urine pH 6.5 Ur Specific [place] <= 1.005 Urine Protein Negative Urine Glucose (UA) Negative Urine Ketones Negative Urine Blood Moderate H Urine Nitrate Negative Urine Bilirubin Negative Urine Urobilinogen 0.2 Ur Leukocyte Esterase Negative Urine RBC 2 - 5 Urine WBC 0 - 2 Ur Epithelial Cells 0 - 2 Urine Bacteria Few Attending/Attestation - Attestation I have personally seen and examined this patient.: Yes I have fully participated in the care of the patient.: Yes I have reviewed all pertinent clinical information: Yes Notes (Text): 11/13/16 71 year old female with past medical history of colon cancer, short bowel syndrome, multiple abdominal surgeries and chronic anemia who presents with complaint of generalized abdominal pain, nausea and diarrhea x 1 day. She states abdominal pain is chronic but worsened over the past one day. CT abd/ pelvis reviewed as above. Patient also has leukocytosis of 15.5 and hypokalemia. Potassium was repleted in ER. CXR and UA are negative. Leukocytosis may be reactive. Patient was to be admitted to remote telemetry for observation with liquid diet to be advanced as tolerated along with stool studies, repeat labs and GI consultation. However patient signed out AMA from the emergency. She was explained the risks of signing out against medical advice but left AMA along with her who was at bedside. Discharge Diagnoses: 1) abdominal pain 2) history of colon cancer 3) hypokalemia 4) leukocytosis Dawson Pruitt MD Hospitalist.
[2016-11-13 17:39] LABS: PH,URINE 6.5 (4.7-8.0); URINE BILIRUBIN NEGATIVE (NEGATIVE); URINE BLOOD MODERATE (NEGATIVE); URINE GLUCOSE (UA) NEGATIVE (NEGATIVE); URINE KETONE NEGATIVE (NEGATIVE); URINE LEUKOCYTE ESTERASE NEGATIVE Leu/uL (NEGATIVE); URINE PROTEIN NEGATIVE mg/dL (<30 mg/dL); URINE UROBILINOGEN 0.2 E.U./dL (<1 E.U./dL)
[2016-11-13 17:44] LABS: URINE APPEARANCE CLEAR (CLEAR); URINE COLOR YELLOW (YELLOW)
[2016-11-13] MEDS ORDERED: Sodium Chloride 0.9% 1,000 ML IV SCH (17:59)
[2016-11-13 18:46] LABS: URINE EPITHELIAL CELLS 0 - 2 /hpf (0-5); URINE WBC 0 - 2 /hpf (0-6)
[2016-11-13 18:47] LABS: URINE BACTERIA FEW (NEG)
[2016-11-13 18:53] VITALS: BP 133/78; PULSE 88; RESP 16
[2016-11-13] MEDS ORDERED: Non Formulary Medication (Temazepam [Restoril] 30 MG) PO SCH (22:00)
[2016-11-13] MEDS ORDERED: DiphenhydrAMINE 50 mg/ml Inj IVP PRN (22:00)
[2016-11-13] MEDS ORDERED: Morphine 2 mg/ml ISec IVP PRN (22:00)
[2016-11-14] MEDS ORDERED: Levothyroxine 150 MCG TAB PO SCH (07:30)
--- NOTE | 2016-11-14 13:55 | CP.PCM.DIS ---
<Adilene Sterling - Last Filed: 11/14/16 14:01> Provider - Provider Date of Admission: 11/13/16 14:03 Attending physician: Dawson Pruitt MD Primary care physician: Bryce Saunders MD Consults: none Time Spent in preparation of Discharge (in minutes): 15 Hospital Course - Lab Results Lab Results: Most Recent Lab Values WBC 15.5 10^3/ul (4.5-11.0) H D 11/13/16 14:00 RBC 3.00 10^6/uL (3.5-6.1) L 11/13/16 14:00 Hgb 9.6 gm/dL (12.0-16.0) L 11/13/16 14:00 Hct 28.0 % (36.0-48.0) L 11/13/16 14:00 MCV 93.3 fL (80.0-105.0) 11/13/16 14:00 MCH 32.0 pg (25.0-35.0) 11/13/16 14:00 MCHC 34.3 g/dl (31.0-37.0) 11/13/16 14:00 RDW 12.9 % (11.5-14.5) 11/13/16 14:00 Plt Count 241 10^3/uL (120.0-450.0) 11/13/16 14:00 MPV 9.1 fl (7.0-11.0) 11/13/16 14:00 Neutrophils % (Manual) 75 % (50.0-70.0) H 11/13/16 14:00 Band Neutrophils % 2 % (0-2) 11/13/16 14:00 Lymphocytes % (Manual) 10 % (22.0-35.0) L 11/13/16 14:00 Monocytes % (Manual) 13 % (1.0-6.0) H 11/13/16 14:00 Smudge Cells Present 11/13/16 14:00 Platelet Evaluation Normal (NORMAL) 11/13/16 14:00 Polychromasia Slight 11/13/16 14:00 Hypochromasia 1+ 11/13/16 14:00 Poikilocytosis (manual Slight 11/13/16 14:00 Anisocytosis (manual) 1+ 11/13/16 14:00 Tear Drop Cells Slight 11/13/16 14:00 Ovalocytes Slight 11/13/16 14:00 PT 14.1 Seconds (9.9-11.8) H 11/13/16 14:00 INR 1.31 (0.93-1.08) H 11/13/16 14:00 APTT 49.9 Seconds (23.7-30.8) H 11/13/16 14:00 pO2 101 mm/Hg (30-55) H 11/13/16 16:15 VBG pH 7.32 (7.32-7.43) 11/13/16 16:15 VBG pCO2 46.0 (40-60) 11/13/16 16:15 VBG HCO3 23.7 mmol/l (21-28) 11/13/16 16:15 VBG Total CO2 25.1 mmol.L (22-28) 11/13/16 16:15 VBG O2 Sat (Calc) 98.1 % (40-65) H 11/13/16 16:15 VBG Base Excess -2.6 mmol/L (0.0-2.0) L 11/13/16 16:15 VBG Potassium 3.0 mmol/L (3.6-5.2) L 11/13/16 16:15 Sodium 133.0 mmol/L (132-148) 11/13/16 16:15 Chloride 106.0 mmol/L (98-107) 11/13/16 16:15 Glucose 89 mg/dl (65-105) 11/13/16 16:15 Lactate 1.1 mmol/L (0.7-2.1) 11/13/16 16:15 FiO2 21.0 % 11/13/16 16:15 Sodium 130 mmol/L (132-148) L 11/13/16 14:00 Potassium 2.5 mmol/L (3.6-5.0) L* D 11/13/16 14:00 Chloride 99 mmol/L (98-107) 11/13/16 14:00 Carbon Dioxide 25 mmol/L (21-33) 11/13/16 14:00 Anion Gap 9 (10-20) L 11/13/16 14:00 BUN 17 mg/dL (7-21) 11/13/16 14:00 Creatinine 0.6 mg/dL (0.5-1.4) 11/13/16 14:00 Est GFR ( Amer) > 60 11/13/16 14:00 Est GFR (Non-Af Amer) > 60 11/13/16 14:00 Random Glucose 92 mg/dL (70-110) 11/13/16 14:00 Calcium 8.4 mg/dL (8.4-10.5) 11/13/16 14:00 Total Bilirubin 0.9 mg/dL (0.2-1.3) 11/13/16 14:00 AST 24 U/L (15-39) 11/13/16 14:00 ALT 36 U/L (7-56) 11/13/16 14:00 Alkaline Phosphatase 78 U/L (38-133) 11/13/16 14:00 Total Protein 5.8 g/dL (5.8-8.3) 11/13/16 14:00 Albumin 3.2 g/dL (3.0-4.8) 11/13/16 14:00 Globulin 2.6 gm/dL 11/13/16 14:00 Albumin/Globulin Ratio 1.2 (1.1-1.8) 11/13/16 14:00 Lipase 36 U/L (23-300) 11/13/16 14:00 Venous Blood Potassium 3.0 mmol/L (3.6-5.2) L 11/13/16 16:15 Urine Color Yellow (YELLOW) 11/13/16 17:15 Urine Appearance Clear (CLEAR) 11/13/16 17:15 Urine pH 6.5 (4.7-8.0) 11/13/16 17:15 Ur Specific [place] <= 1.005 (1.005-1.035) 11/13/16 17:15 Urine Protein Negative mg/dL (<30 mg/dL) 11/13/16 17:15 Urine Glucose (UA) Negative mg/dL (NEGATIVE) 11/13/16 17:15 Urine Ketones Negative mg/dL (NEGATIVE) 11/13/16 17:15 Urine Blood Moderate (NEGATIVE) H 11/13/16 17:15 Urine Nitrate Negative (NEGATIVE) 11/13/16 17:15 Urine Bilirubin Negative (NEGATIVE) 11/13/16 17:15 Urine Urobilinogen 0.2 E.U./dL (<1 E.U./dL) 11/13/16 17:15 Ur Leukocyte Esterase Negative [place]/uL (NEGATIVE) 11/13/16 17:15 Urine RBC 2 - 5 /hpf (0-2) 11/13/16 17:15 Urine WBC 0 - 2 /hpf (0-6) 11/13/16 17:15 Ur Epithelial Cells 0 - 2 /hpf (0-5) 11/13/16 17:15 Urine Bacteria Few (NEG) 11/13/16 17:15 - Hospital Course Hospital Course: 71 yo F w/ PMHx of colon CA, short bowel syndrome, HTN, anemia, multiple colon sx, presents with one day exacerbation of diffuse abdominal pain, with c/o of diarrhea, and nausea. Recent ED visit w/in a week, w/ similar abdominal pain complaint. Diarrhea is non-bloody, and is about 5-6 episodes of diarrhea per day. ABD CT shows dilated proximal colon and loops of small bowel near pelvis. WBC of 15.5. For hyponatremia and hypokalemia, in ED recieved potassium repletion, NS IVF. Orders placed to be under observation in remote telemetry. Orders placed for floor transfer: morphine 2mg IVP q6h prn, protonix, scd, Benadryl 25 IV q6h prn, Stool C. diff toxin ordered, NS @100cc/hr, Norvasc 10 mg PO qd, Levothyroxine 150 mcg qd with the following home medications: restoril 30 mg PO HS, trazadone 100 mg PO qd While awaiting transfer to floor, Pt refused to stay and signed AMA paperwork despite detailed instruction from ED attending on the consequences of leaving and the benefits of staying for tx. Discharge Exam - Additional Findings Additional findings: Please see HPI Discharge Plan - Follow Up Plan Condition: FAIR Disposition: AGAINST MEDICAL ADVICE Instructions: Hypokalemia (DC), Short Bowel Syndrome (ED), Acute Abdominal Pain (DC) Additional Instructions: Mr Lane, thank you for letting us take care of you today. Your provider was Dr. Keith. You were treated for Abdominal Pain, Hypokalemia. The emergency medical care you received today was directed at your acute symptoms. If you were prescribed any medication, please fill it and take as directed. It may take several days for your symptoms to resolve. Return to the Emergency Department if your symptoms worsen, do not improve, or if you have any other problems. Please contact your doctor or call one of the physicians/clinics you have been referred to that are listed on the Patient Visit Information form that is included in your discharge packet. Bring any paperwork you were given at discharge with you along with any medications you are taking to your follow up visit. Our treatment cannot replace ongoing medical care by a primary care provider (PCP) outside of the emergency department. Thank you for allowing the [facility] team to be part of your care today. If you had an X-Ray or CT scan: A Radiologist will review the ED reading if any change in treatment is needed we will contact you. If you had a blood, urine, or wound culture: It will take several days for the results, if any change in treatment is needed we will contact you. If you had an STI test: It will take 48 hours for the results. Please call after 1 week if you have not heard back. Referrals: Bryce Saunders MD [Primary Care Provider] - Follow up with primary <Dawson Pruitt - Last Filed: 11/14/16 14:27> Provider - Provider Date of Admission: 11/13/16 14:03 Attending physician: Dawson Pruitt MD Primary care physician: Bryce Saunders MD Hospital Course - Lab Results Lab Results: Most Recent Lab Values WBC 15.5 10^3/ul (4.5-11.0) H D 11/13/16 14:00 RBC 3.00 10^6/uL (3.5-6.1) L 11/13/16 14:00 Hgb 9.6 gm/dL (12.0-16.0) L 11/13/16 14:00 Hct 28.0 % (36.0-48.0) L 11/13/16 14:00 MCV 93.3 fL (80.0-105.0) 11/13/16 14:00 MCH 32.0 pg (25.0-35.0) 11/13/16 14:00 MCHC 34.3 g/dl (31.0-37.0) 11/13/16 14:00 RDW 12.9 % (11.5-14.5) 11/13/16 14:00 Plt Count 241 10^3/uL (120.0-450.0) 11/13/16 14:00 MPV 9.1 fl (7.0-11.0) 11/13/16 14:00 Neutrophils % (Manual) 75 % (50.0-70.0) H 11/13/16 14:00 Band Neutrophils % 2 % (0-2) 11/13/16 14:00 Lymphocytes % (Manual) 10 % (22.0-35.0) L 11/13/16 14:00 Monocytes % (Manual) 13 % (1.0-6.0) H 11/13/16 14:00 Smudge Cells Present 11/13/16 14:00 Platelet Evaluation Normal (NORMAL) 11/13/16 14:00 Polychromasia Slight 11/13/16 14:00 Hypochromasia 1+ 11/13/16 14:00 Poikilocytosis (manual Slight 11/13/16 14:00 Anisocytosis (manual) 1+ 11/13/16 14:00 Tear Drop Cells Slight 11/13/16 14:00 Ovalocytes Slight 11/13/16 14:00 PT 14.1 Seconds (9.9-11.8) H 11/13/16 14:00 INR 1.31 (0.93-1.08) H 11/13/16 14:00 APTT 49.9 Seconds (23.7-30.8) H 11/13/16 14:00 pO2 101 mm/Hg (30-55) H 11/13/16 16:15 VBG pH 7.32 (7.32-7.43) 11/13/16 16:15 VBG pCO2 46.0 (40-60) 11/13/16 16:15 VBG HCO3 23.7 mmol/l (21-28) 11/13/16 16:15 VBG Total CO2 25.1 mmol.L (22-28) 11/13/16 16:15 VBG O2 Sat (Calc) 98.1 % (40-65) H 11/13/16 16:15 VBG Base Excess -2.6 mmol/L (0.0-2.0) L 11/13/16 16:15 VBG Potassium 3.0 mmol/L (3.6-5.2) L 11/13/16 16:15 Sodium 133.0 mmol/L (132-148) 11/13/16 16:15 Chloride 106.0 mmol/L (98-107) 11/13/16 16:15 Glucose 89 mg/dl (65-105) 11/13/16 16:15 Lactate 1.1 mmol/L (0.7-2.1) 11/13/16 16:15 FiO2 21.0 % 11/13/16 16:15 Sodium 130 mmol/L (132-148) L 11/13/16 14:00 Potassium 2.5 mmol/L (3.6-5.0) L* D 11/13/16 14:00 Chloride 99 mmol/L (98-107) 11/13/16 14:00 Carbon Dioxide 25 mmol/L (21-33) 11/13/16 14:00 Anion Gap 9 (10-20) L 11/13/16 14:00 BUN 17 mg/dL (7-21) 11/13/16 14:00 Creatinine 0.6 mg/dL (0.5-1.4) 11/13/16 14:00 Est GFR ( Amer) > 60 11/13/16 14:00 Est GFR (Non-Af Amer) > 60 11/13/16 14:00 Random Glucose 92 mg/dL (70-110) 11/13/16 14:00 Calcium 8.4 mg/dL (8.4-10.5) 11/13/16 14:00 Total Bilirubin 0.9 mg/dL (0.2-1.3) 11/13/16 14:00 AST 24 U/L (15-39) 11/13/16 14:00 ALT 36 U/L (7-56) 11/13/16 14:00 Alkaline Phosphatase 78 U/L (38-133) 11/13/16 14:00 Total Protein 5.8 g/dL (5.8-8.3) 11/13/16 14:00 Albumin 3.2 g/dL (3.0-4.8) 11/13/16 14:00 Globulin 2.6 gm/dL 11/13/16 14:00 Albumin/Globulin Ratio 1.2 (1.1-1.8) 11/13/16 14:00 Lipase 36 U/L (23-300) 11/13/16 14:00 Venous Blood Potassium 3.0 mmol/L (3.6-5.2) L 11/13/16 16:15 Urine Color Yellow (YELLOW) 11/13/16 17:15 Urine Appearance Clear (CLEAR) 11/13/16 17:15 Urine pH 6.5 (4.7-8.0) 11/13/16 17:15 Ur Specific [place] <= 1.005 (1.005-1.035) 11/13/16 17:15 Urine Protein Negative mg/dL (<30 mg/dL) 11/13/16 17:15 Urine Glucose (UA) Negative mg/dL (NEGATIVE) 11/13/16 17:15 Urine Ketones Negative mg/dL (NEGATIVE) 11/13/16 17:15 Urine Blood Moderate (NEGATIVE) H 11/13/16 17:15 Urine Nitrate Negative (NEGATIVE) 11/13/16 17:15 Urine Bilirubin Negative (NEGATIVE) 11/13/16 17:15 Urine Urobilinogen 0.2 E.U./dL (<1 E.U./dL) 11/13/16 17:15 Ur Leukocyte Esterase Negative [place]/uL (NEGATIVE) 11/13/16 17:15 Urine RBC 2 - 5 /hpf (0-2) 11/13/16 17:15 Urine WBC 0 - 2 /hpf (0-6) 11/13/16 17:15 Ur Epithelial Cells 0 - 2 /hpf (0-5) 11/13/16 17:15 Urine Bacteria Few (NEG) 11/13/16 17:15 Attending/Attestation - Attestation I have reviewed all pertinent clinical information, including history, physical exam and plan: Yes Notes (Text): 11/14/16 14:27 please see HP note
== END 2016-11-13 19:31 | disposition left against medical advice (07) ==
LOC: ED 13:05 → EROBSV 14:03 → ERH 17:13 → EROBSV 17:13 → ERH 17:36
PROVIDERS: ADMIT Internal Medicine; ATTEND Emergency Medicine
DX: E86.0 Dehydration (principal); K91.2 Postsurgical malabsorption, not elsewhere classified; R10.9 Unspecified abdominal pain; D72.829 Elevated white blood cell count, unspecified; E87.6 Hypokalemia; I10 Essential (primary) hypertension; D64.9 Anemia, unspecified; Z85.038 Personal history of other malignant neoplasm of large intestine; Z90.49 Acquired absence of other specified parts of digestive tract
CPT/HCPCS: 36415; 71010; 74177; 80053; 81001; 82803; 83690; 85025; 85610; 85730; 96374; 96375; 96376; 99285; G0378; J1200; J2270; J2405; J3480; J7040; Q9966; Q9967